=== PATIENT | female | born 2000 | race American Indian/Alaskan Native ===

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

== ENCOUNTER 2018-03-23 20:57 | Emergency (ER) | payer OTHER ==
[2018-03-23 20:57] VITALS: BMI 18.9
[2018-03-23 21:29] VITALS: RESP 18; TEMP 98
[2018-03-23 22:38] LABS: INFLUENZA A B NEGATIVE FOR FLU A/B (NEGATIVE)
--- NOTE | 2018-03-23 22:52 | ED PDOC ---
Arrival/HPI - General Chief Complaint: GI Problem Time Seen by Provider: 03/23/18 21:47 Historian: Patient - History of Present Illness Narrative History of Present Illness (Text): 03/23/18 22:45 17yo male with pmhx of Ovarian cyst who present with 4days history of left ear pain, sore throat, subjective fever, nausea, vomiting x2. States she have had chronic LLQ abdominal pain secondary to Ovarian cyst, but it became worse with her cold symptoms. She denies not take any medication. Denies drooling, hoarseness, dysphagia, odynophagia, cough, chest pain, urinary symptoms, any other complaint. Past Medical History - Provider Review Nursing Documentation Reviewed: Yes - Infectious Disease Hx of Infectious Diseases: None - Psychiatric Hx Psychophysiologic Disorder: No Hx Substance Use: No Family/Social History - Physician Review Nursing Documentation Reviewed: Yes Family/Social History: Unknown Family HX Smoking Status: Never Smoked Hx Alcohol Use: No Hx Substance Use: No Allergies/Home Meds Allergies/Adverse Reactions: Allergies peanut Allergy (Verified 03/23/18 21:26) ITCHING shellfish derived Allergy (Verified 03/23/18 21:26) ITCHING Home Medications: Home Meds Medication Instructions Recorded Confirmed RX: Ibuprofen [Motrin Tab] 600 mg PO Q6 PRN 03/09/18 03/23/18 Review of Systems - Physician Review All systems were reviewed & negative as marked: Yes - Review of Systems Constitutional: Normal Eyes: Normal ENT: Sore Throat Respiratory: Cough Cardiovascular: Normal Gastrointestinal: Abdominal Pain, Diarrhea, Nausea, Vomiting. absent: Constipation, Hematemesis Genitourinary Female: Normal Musculoskeletal: Normal Skin: Normal Neurological: Normal Endocrine: Normal Hemo/Lymphatic: Normal Psychiatric: Normal Physical Exam Vital Signs Reviewed: Yes Vital Signs Temp Pulse Resp BP Pulse Ox 03/23/18 21:26 98 F 74 18 116/81 100 Temperature: Afebrile Blood Pressure: Normal Pulse: Regular Respiratory Rate: Normal Appearance: Positive for: Well-Appearing, Non-Toxic, Comfortable Pain Distress: None Mental Status: Positive for: Alert and Oriented X 3 - Systems Exam Head: Present: Atraumatic, Normocephalic Pupils: Present: PERRL Extroacular Muscles: Present: EOMI Conjunctiva: Present: Normal Ears: Present: Erythema (LEft TM) Mouth: Present: Moist Mucous Membranes Pharnyx: Present: Normal. No: ERYTHEMA, EXUDATE, TONSILS ENLARGED, Peritonsilar Swelling, Uvular Deviation, Muffled/Hoarse Voice, Strider, Soft Palate/Uvular Edema Neck: Present: Normal Range of Motion Respiratory/Chest: Present: Clear to Auscultation, Good Air Exchange. No: Respiratory Distress, Accessory Muscle Use, Wheezes, Decreased Breath Sounds, Rales, Retracting, Rhonchi Cardiovascular: Present: Regular Rate and Rhythm, Normal S1, S2. No: Murmurs Abdomen: Present: Normal Bowel Sounds, Other (Soft). No: Tenderness, Distention, Peritoneal Signs, Rebound, Guarding, McBurney's Point Tender, Rovsing's Sign Present Back: Present: Normal Inspection Upper Extremity: Present: Normal Inspection. No: Cyanosis, Edema Lower Extremity: Present: Normal Inspection. No: Edema Neurological: Present: GCS=15, CN II-XII Intact, Speech Normal Skin: Present: Warm, Dry, Normal Color. No: Rashes Psychiatric: Present: Alert, Oriented x 3, Normal Insight, Normal Concentration Medical Decision Making ED Course and Treatment: 03/24/18 00:01 17yo female who present to ED for stated history. She was not in any distress. She was noted to tolerate PO in ED. Rapid flu/strep was negative Her abdominal pain is chronic. She had erythema of her left TM and was treated with Augmentin. Referred to her PMD. - Medication Orders Current Medication Orders: Discontinued Medications Ondansetron HCl (Zofran Odt) 4 mg PO STAT STA Stop: 03/23/18 22:02 Last Admin: 03/23/18 22:11 Dose: 4 mg Disposition/Present on Arrival - Present on Arrival Any Indicators Present on Arrival: No History of DVT/PE: No History of Uncontrolled Diabetes: No Urinary Catheter: No History of Decub. Ulcer: No History Surgical Site Infection Following: None - Disposition Have Diagnosis and Disposition been Completed?: Yes Diagnosis: Acute otitis media, Vomiting and diarrhea, Abdominal pain Disposition: HOME/ ROUTINE Disposition Time: 22:55 Patient Plan: Discharge Patient Problems: Current Active Problems Problem Status Onset Abdominal pain Acute Acute otitis media Acute Vomiting and diarrhea Acute Condition: STABLE Discharge Instructions (ExitCare): Ear Infections (Otitis Media), Diarrhea in Adolescents and Adults, Nausea and Vomiting, Adult (DC) Additional Instructions: Follow up with your doctor Return to ED for any new or worsening symptoms Prescriptions: Amoxicillin/Clavulanate [Augmentin 875 MG-125 MG] 1 tab PO BID #14 tab Ondansetron ODT [Zofran ODT] 4 mg PO Q6 #5 odt Referrals: Shola Saravia MD [Primary Care Provider] - Follow up with primary Forms: [employer] (Greek)
[2018-03-24 00:41] VITALS: BP 118/74; PULSE 70; O2SAT 99
== END 2018-03-23 23:10 | disposition home or self-care (01) ==
LOC: ED 20:57
DX: R11.2 Nausea with vomiting, unspecified (principal); R19.7 Diarrhea, unspecified; R10.32 Left lower quadrant pain; H66.90 Otitis media, unspecified, unspecified ear

== ENCOUNTER 2018-04-30 15:40 | Emergency (ER) | payer SELFPAY ==
[2018-04-30 15:40] VITALS: BMI 18.9
[2018-04-30 15:48] VITALS: O2SAT 100
--- NOTE | 2018-04-30 16:16 | ED PDOC ---
Arrival/HPI - General Chief Complaint: Eye Problem Time Seen by Provider: 04/30/18 15:56 Historian: Patient - History of Present Illness Narrative History of Present Illness (Text): 04/30/18 15:57 17 y/o female, no significant pmh, nkda, c/o rt. eye redness and irritation x 1 day with no fall or trauma. Pt. stated that she woke up this morning with rt. eye redness, irritation, doesn't wear contacts or glasses, no change in vision, no numbness or tingling, no night sweat, no rash, no diarrhea, no abdominal or pelvic pain, no other medical or psychological complaints. Past Medical History - Provider Review Nursing Documentation Reviewed: Yes - Infectious Disease Hx of Infectious Diseases: None - Psychiatric Hx Psychophysiologic Disorder: No Hx Substance Use: No Family/Social History - Physician Review Nursing Documentation Reviewed: Yes Family/Social History: Unknown Family HX Smoking Status: Never Smoked Hx Alcohol Use: No Hx Substance Use: No Allergies/Home Meds Allergies/Adverse Reactions: Allergies peanut Allergy (Verified 04/30/18 15:48) ITCHING shellfish derived Allergy (Verified 04/30/18 15:48) ITCHING Review of Systems - Review of Systems Constitutional: absent: Fatigue, Fevers Eyes: Other (rt. eye redness ). absent: Vision Changes ENT: absent: Hearing Changes Respiratory: absent: SOB, Cough Cardiovascular: absent: Chest Pain Gastrointestinal: absent: Abdominal Pain, Nausea, Vomiting Musculoskeletal: absent: Arthralgias, Back Pain, Neck Pain, Joint Swelling Skin: absent: Rash, Pruritis, Skin Lesions Neurological: absent: Headache, Dizziness Psychiatric: absent: Anxiety, Depression, Suicidal Ideation Physical Exam Vital Signs Reviewed: Yes Vital Signs Temp Pulse Resp BP Pulse Ox 04/30/18 15:46 97.4 F L 77 18 130/82 100 Temperature: Afebrile Blood Pressure: Normal Pulse: Regular Respiratory Rate: Normal Appearance: Positive for: Well-Appearing, Non-Toxic, Comfortable Pain Distress: None Mental Status: Positive for: Alert and Oriented X 3 - Systems Exam Head: Present: Atraumatic, Normocephalic Pupils: Present: PERRL, Other (Eyes: bilateral vision w/o correction 20/30, rt. eye vision w/o correction 20/30 vs. lt. eye vision w/o correction 20/30, bilateral upper and lower eyelids everted show there is no visible foreign bodies/laceration/abrasion or abnormalities, rt. eye examined with fluorsein strip show no corneal or conjunctival abrasion, negative jose guadaulpe sign bilaterally, FREOM without limitation or pain. ) Extroacular Muscles: Present: EOMI. No: Gaze Palsy, Entrapment Conjunctiva: Present: Normal Ears: Present: NORMAL TM, Normal Canal. No: Erythema Mouth: Present: Moist Mucous Membranes Neck: Present: Normal Range of Motion Respiratory/Chest: Present: Clear to Auscultation, Good Air Exchange. No: Respiratory Distress, Accessory Muscle Use Cardiovascular: Present: Regular Rate and Rhythm, Normal S1, S2. No: Murmurs Abdomen: No: Tenderness, Distention, Peritoneal Signs Back: Present: Normal Inspection Upper Extremity: Present: Normal Inspection. No: Cyanosis, Edema Lower Extremity: Present: Normal Inspection. No: Edema Neurological: Present: GCS=15, CN II-XII Intact, Speech Normal Skin: Present: Warm, Dry, Normal Color. No: Rashes Psychiatric: Present: Alert, Oriented x 3, Normal Insight, Normal Concentration Medical Decision Making ED Course and Treatment: 04/30/18 16:19 -Urine hcg is negative -Discharge home with ciloxin, avoid touching or rubbing the eye, follow up with your own pmd and opthalmologist within 2 days, return to the ER for any new or worsening signs or symptoms. - PA / CIRC[employer] RIDER / Resident Statement / has reviewed & agrees with the documentation as recorded. Disposition/Present on Arrival - Present on Arrival Any Indicators Present on Arrival: No History of DVT/PE: No History of Uncontrolled Diabetes: No Urinary Catheter: No History of Decub. Ulcer: No History Surgical Site Infection Following: None - Disposition Have Diagnosis and Disposition been Completed?: Yes Diagnosis: Conjunctivitis Disposition: HOME/ ROUTINE Disposition Time: 16:20 Patient Plan: Discharge Condition: GOOD Additional Instructions: -Discharge home with ciloxin, avoid touching or rubbing the eye, follow up with your own pmd and opthalmologist within 2 days, return to the ER for any new or worsening signs or symptoms. Prescriptions: Ciprofloxacin 0.3% [Ciloxan 0.3% Ophth SOLN] 2 drop OD Q4H #1 bottle Referrals: Raad Hillman MD [Staff Provider] - Follow up with primary Forms: [employer] (Iraqi), WORK NOTE
[2018-04-30 16:35] VITALS: BP 127/85; PULSE 83; RESP 20; TEMP 98
== END 2018-04-30 16:29 | disposition home or self-care (01) ==
LOC: ED 15:40
DX: H10.9 Unspecified conjunctivitis (principal)

== ENCOUNTER 2018-06-23 11:48 | Emergency (ER) | payer SELFPAY ==
[2018-06-23 11:49] VITALS: BMI 18.9
[2018-06-23 11:56] VITALS: RESP 18; TEMP 98.2
--- NOTE | 2018-06-23 13:57 | ED PDOC ---
Arrival/HPI - General Chief Complaint: ENT Problem Time Seen by Provider: 06/23/18 12:00 Historian: Patient - History of Present Illness Narrative History of Present Illness (Text): 06/23/18 13:55 17-year-old female with sore throat since yesterday. Denies fevers or chills. No chest pain or shortness of breath. No dizziness or weakness. Patient also complaining of nasal congestion for 2 days. Denies sick contacts. No med ications taken at home. No other complaints patient denies difficulty breathing or swallowing. Patient states she has a itchy burning feeling in the back of the throat. Past Medical History - Provider Review Nursing Documentation Reviewed: Yes - Travel History Have you recently traveled outside [place] w/in the past 3 mons?: No - Infectious Disease Hx of Infectious Diseases: None - Psychiatric Hx Psychophysiologic Disorder: No Hx Substance Use: No - Anesthesia Hx Anesthesia: No Family/Social History - Physician Review Nursing Documentation Reviewed: Yes Family/Social History: Unknown Family HX Smoking Status: Never Smoked Hx Alcohol Use: No Hx Substance Use: No Allergies/Home Meds Allergies/Adverse Reactions: Allergies peanut Allergy (Verified 06/23/18 11:55) ITCHING shellfish derived Allergy (Verified 06/23/18 11:55) ITCHING Review of Systems - Review of Systems Constitutional: absent: Fatigue, Fevers ENT: Sore Throat, Sinus Congestion Respiratory: absent: SOB, Cough Cardiovascular: absent: Chest Pain, Palpitations Gastrointestinal: absent: Abdominal Pain, Nausea, Vomiting Musculoskeletal: absent: Arthralgias Skin: absent: Rash, Pruritis Neurological: absent: Headache, Dizziness Psychiatric: absent: Anxiety, Depression Physical Exam Vital Signs Reviewed: Yes Vital Signs Temp Pulse Resp BP Pulse Ox 06/23/18 11:55 98.2 F 82 18 111/68 100 Temperature: Afebrile Blood Pressure: Normal Pulse: Regular Respiratory Rate: Normal Appearance: Positive for: Well-Appearing, Non-Toxic, Comfortable Pain Distress: None Mental Status: Positive for: Alert and Oriented X 3 - Systems Exam Head: Present: Atraumatic Conjunctiva: Present: Normal Ears: Present: Normal Mouth: Present: Moist Mucous Membranes. No: Drooling, Trismus Pharnyx: Present: ERYTHEMA. No: EXUDATE, Uvular Deviation Nose (External): Present: Atraumatic Nose (Internal): Present: Normal Inspection Neck: Present: Normal Range of Motion, Trachea Midline Respiratory/Chest: Present: Clear to Auscultation, Good Air Exchange. No: Respiratory Distress, Accessory Muscle Use Cardiovascular: Present: Regular Rate and Rhythm, Normal S1, S2. No: Murmurs Neurological: Present: GCS=15, Speech Normal Skin: Present: Warm, Dry, Normal Color. No: Rashes Psychiatric: Present: Alert, Oriented x 3 Medical Decision Making ED Course and Treatment: 06/23/18 13:57 Patient is nontoxic well appearing in no distress. Vital signs are stable Tolerating p.o. fluids and solids Tylenol p.o. Rapid strep positive Amoxicillin p.o. I advised follow up with primary care physician within the next 2 days, advised to increase fluids take medications as prescribed and return if symptoms worsen persist or if new symptoms develop patient was advised to follow-up with ENT specialist within the next 2 days.. Patient verbalizes understanding of discharge instructions and need for immediate followup. All aspects of this case were discussed the attending of record. IMPRESSION; pharyngitis Motrin every 6 hours as needed for pain/fever reduction Increase fluids Amoxicillin 3 times daily x10 days Follow up primary care physician within the next 2 days Saltwater gargles, throat lozenges Return if symptoms worsen persist or if new symptoms develop - Medication Orders Current Medication Orders: Discontinued Medications Acetaminophen (Tylenol 325mg Tab) 650 mg PO STAT STA Stop: 06/23/18 12:34 Last Admin: 06/23/18 13:49 Dose: 650 mg Disposition/Present on Arrival - Present on Arrival Any Indicators Present on Arrival: No History of DVT/PE: No History of Uncontrolled Diabetes: No Urinary Catheter: No History of Decub. Ulcer: No History Surgical Site Infection Following: None - Disposition Have Diagnosis and Disposition been Completed?: Yes Diagnosis: Strep pharyngitis Disposition: HOME/ ROUTINE Disposition Time: 13:20 Patient Plan: Discharge Condition: GOOD Discharge Instructions (ExitCare): Strep Throat (DC), Sore Throat, Adult (DC) Additional Instructions: Motrin every 6 hours as needed for pain/fever reduction Increase fluids Amoxicillin 3 times daily x10 days Follow up primary care physician within the next 2 days Saltwater gargles, throat lozenges Return if symptoms worsen persist or if new symptoms develop Prescriptions: Amoxicillin 500 mg PO TID #30 tab Referrals: Mazzoni,Addy F, DO [Staff Provider] - Follow up with primary Ashlee Elam MD [Medical Doctor] - Follow up with primary [facility] [Outside] - Follow up with primary Forms: [employer] (Lux[place]ish), WORK NOTE
[2018-06-23 14:59] VITALS: BP 110/67; PULSE 75; O2SAT 98
== END 2018-06-23 14:58 | disposition home or self-care (01) ==
LOC: ED 11:48
DX: J02.0 Streptococcal pharyngitis (principal)

== ENCOUNTER 2018-06-27 11:35 | Emergency (ER) | payer MEDICAID, OTHER ==
[2018-06-27 11:35] VITALS: BMI 18.9
[2018-06-27 11:50] VITALS: O2SAT 98
--- NOTE | 2018-06-27 12:59 | ED PDOC ---
Arrival/HPI - General Chief Complaint: ENT Problem Time Seen by Provider: 06/27/18 11:36 Historian: Patient - History of Present Illness Narrative History of Present Illness (Text): 06/27/18 13:20 17-year-old female presents today requesting a work note. Patient states she was seen in the hospital on Tuesday for throat infection. Patient states she was discharged home with antibiotics for which she has been taking. Patient states occasionally she will take Motrin for the pain. Patient states the pain has improved. she is eating and drinking well. Denies difficulties breathing or swallowing. There is no vomiting or diarrhea. Patient denies headaches or dizziness. Patient states her boss will not let her return to work with strep throat because it is contagious. She states she needs a work note to return to work. Past Medical History - Provider Review Nursing Documentation Reviewed: Yes Primary Care Provider: Shola Saravai - Travel History Have you recently traveled outside [place] w/in the past 3 mons?: No - Infectious Disease Hx of Infectious Diseases: None - Psychiatric Hx Psychophysiologic Disorder: No Hx Substance Use: No - Anesthesia Hx Anesthesia: No Family/Social History - Physician Review Nursing Documentation Reviewed: Yes Family/Social History: Unknown Family HX Smoking Status: Never Smoked Hx Alcohol Use: No Hx Substance Use: No Allergies/Home Meds Allergies/Adverse Reactions: Allergies peanut Allergy (Verified 06/27/18 11:49) ITCHING shellfish derived Allergy (Verified 06/27/18 11:49) ITCHING Review of Systems - Review of Systems Constitutional: absent: Fatigue, Fevers ENT: Sore Throat Respiratory: absent: SOB, Cough Cardiovascular: absent: Chest Pain, Palpitations Gastrointestinal: absent: Abdominal Pain, Nausea, Vomiting Genitourinary Female: absent: Dysuria Musculoskeletal: absent: Arthralgias, Back Pain, Neck Pain Skin: absent: Rash, Pruritis Neurological: absent: Headache, Dizziness Psychiatric: absent: Anxiety, Depression Physical Exam Vital Signs Reviewed: Yes Vital Signs Temp Pulse Resp BP Pulse Ox 06/27/18 11:49 98.0 F 77 18 125/75 98 Temperature: Afebrile Blood Pressure: Normal Pulse: Regular Respiratory Rate: Normal Appearance: Positive for: Well-Appearing, Non-Toxic, Comfortable Pain Distress: None Mental Status: Positive for: Alert and Oriented X 3 - Systems Exam Head: Present: Atraumatic Pupils: Present: PERRL Extroacular Muscles: Present: EOMI Conjunctiva: Present: Normal Ears: Present: Normal, NORMAL TM Mouth: Present: Moist Mucous Membranes Pharnyx: Present: Normal. No: ERYTHEMA, EXUDATE, TONSILS ENLARGED, Peritonsilar Swelling, Uvular Deviation, Muffled/Hoarse Voice Nose (External): Present: Atraumatic Neck: Present: Normal Range of Motion, Trachea Midline. No: Lymphadenopathy Respiratory/Chest: Present: Clear to Auscultation Cardiovascular: Present: Regular Rate and Rhythm Neurological: Present: GCS=15, Speech Normal Skin: Present: Warm, Dry, Normal Color. No: Rashes Psychiatric: Present: Alert, Oriented x 3 Medical Decision Making ED Course and Treatment: 06/27/18 13:23 Patient is nontoxic well-appearing no distress with stable vital signs requesting a work note. Complaining of sore throat that has improved since being on antibiotics. Patient is nontoxic well-appearing. Afebrile. Speaking in full sentences. No muffled voice. No trismus or drooling. No pharyngeal erythema or edema Patient was advised to take Motrin every 6 hours as needed for pain and continue antibiotics as prescribed Patient was advised to follow-up with ENT specialist and PMD. Patient was advised to may return if symptoms worsen persist or if new concerning symptoms develop Patient verbalizes understanding of discharge instructions and need for immediate followup. All aspects of this case were discussed the attending of record. Impression: Sore throat Continue medications as prescribed. Motrin every 6 hours as needed for pain/fever reduction Continue amoxicillin until completion. Follow up with the primary care physician within the next 2 days. follow up with the ENT specialist within the next 2 days. Disposition/Present on Arrival - Present on Arrival Any Indicators Present on Arrival: No History of DVT/PE: No History of Uncontrolled Diabetes: No Urinary Catheter: No History of Decub. Ulcer: No History Surgical Site Infection Following: None - Disposition Have Diagnosis and Disposition been Completed?: Yes Diagnosis: Sore throat Disposition: HOME/ ROUTINE Disposition Time: 12:55 Patient Plan: Discharge Patient Problems: Current Active Problems Problem Status Onset Sore throat Acute Condition: GOOD Discharge Instructions (ExitCare): Sore Throat, Adult (DC) Additional Instructions: Continue medications as prescribed. Motrin every 6 hours as needed for pain/fever reduction Continue amoxicillin until completion. Follow up with the primary care physician within the next 2 days. follow up with the ENT specialist within the next 2 days. Referrals: Shola Saravia MD [Primary Care Provider] - Follow up with primary Addy Oliver DO [Staff Provider] - Follow up with primary Forms: [employer] ([place]ovenian), WORK NOTE
[2018-06-27 13:37] VITALS: BP 121/62; PULSE 73; RESP 16; TEMP 98
== END 2018-06-27 13:36 | disposition home or self-care (01) ==
LOC: ED 11:35
DX: J02.9 Acute pharyngitis, unspecified (principal)